=== PATIENT | female | born 1965 | race Caucasian/White ===

== ENCOUNTER 2017-07-03 11:42 | Emergency (ER) | payer BC, OTHER ==
[~2017-07-03] VITALS: Ht 152.4 cm; Wt 68.0 kg
[2017-07-03] MEDS ORDERED: IBUP200C5 PO (12:04)
--- NOTE | 2017-07-03 13:09 | NUR ---
PATIENT WAS SEEN BY MD FOR C/O BACK PAIN. IMAGING COMPLETED . DR DEMPSEY SPOKE TO PATIENT AFTER EXAM. DC AND FOLLOW UP INSTRUCTIONS GIVEN AND EXPLAINED TO PATIENT WHO STATES SHE UNDERSTANDS ALL INSTRUCTIONS.
== END 2017-07-03 13:11 | disposition home or self-care (01) ==
LOC: ER 11:43
DX: M54.9 Dorsalgia, unspecified (principal); Z79.1 Long term (current) use of non-steroidal anti-inflammatories (NSAID)
CPT/HCPCS: 72072; 72100; A4663